=== PATIENT | female | born 1990 | race American Indian/Alaskan Native ===

== ENCOUNTER 2018-10-21 13:15 | Outpatient (CLI) | payer MEDICAID ==
[2018-10-21 18:22] LABS: BASOPHILS # (AUTO) 0.1 10^3/uL (0.0-0.1); BASOPHILS % (AUTO) 0.7 %; EOSINOPHILS # (AUTO) 0.3 10^3/uL (0.0-0.7); HGB - HEMOGLOBIN 13.5 g/dL (12.0-16.0); LYMPHOCYTES # (AUTO) 2.4 10^3/uL (1.5-3.5); LYMPHOCYTES % (AUTO) 28.7 %; MEAN CORPUSCULAR HEMOGLOBIN 28.6 pg (27.0-31.0); MEAN CORPUSCULAR HGB CONC 32.3 g/dL (32.0-36.0); MEAN CORPUSCULAR VOLUME 88.6 fL (81.0-99.0); MONOCYTES # (AUTO) 0.3 10^3/uL (0.0-1.0); MONOCYTES % (AUTO) 3.9 %; NEUTROPHILS # (AUTO) 5.2 10^3/uL (1.5-6.6); NEUTROPHILS % (AUTO) 62.7 %; PLT - PLATELET COUNT 276 10^3/uL (130-450); RED BLOOD COUNT 4.73 10^6/uL (4.20-5.40); RED CELL DISTRIBUTION WIDTH 13.9 % (12.0-15.0); WHITE BLOOD COUNT 8.3 x10^3/uL (4.8-10.8)
[2018-10-21 18:28] LABS: CALCIUM 9.5 mg/dL (8.5-10.3); CREATININE 0.8 mg/dL (0.4-1.0)
== END 2018-10-21 23:59 | disposition home or self-care (01) ==
LOC: LAB.N 13:15
PROVIDERS: ATTEND Physician Assistant Medical
DX: Z00.00 Encounter for general adult medical examination without abnormal findings (principal); E66.01 Morbid (severe) obesity due to excess calories; J30.2 Other seasonal allergic rhinitis; F17.210 Nicotine dependence, cigarettes, uncomplicated; J45.20 Mild intermittent asthma, uncomplicated
CPT/HCPCS: 36415; 80048; 84443; 85025

== ENCOUNTER 2019-03-04 08:00 | Outpatient (CLI) | payer MEDICAID ==
[2019-03-04 18:53] LABS: BASOPHILS # (AUTO) 0.1 10^3/uL (0.0-0.1); BASOPHILS % (AUTO) 0.9 %; EOSINOPHILS # (AUTO) 0.4 10^3/uL (0.0-0.7); HGB - HEMOGLOBIN 13.9 g/dL (12.0-16.0); LYMPHOCYTES # (AUTO) 2.5 10^3/uL (1.5-3.5); LYMPHOCYTES % (AUTO) 30.8 %; MEAN CORPUSCULAR HEMOGLOBIN 29.4 pg (27.0-31.0); MEAN CORPUSCULAR HGB CONC 31.5 g/dL (32.0-36.0); MEAN CORPUSCULAR VOLUME 93.4 fL (81.0-99.0); MEAN PLATELET VOLUME 11.2 fL (7.9-10.8); MONOCYTES # (AUTO) 0.4 10^3/uL (0.0-1.0); MONOCYTES % (AUTO) 5.4 %; NEUTROPHILS # (AUTO) 4.7 10^3/uL (1.5-6.6); NEUTROPHILS % (AUTO) 57.7 %; PLT - PLATELET COUNT 307 10^3/uL (130-450); RED BLOOD COUNT 4.72 10^6/uL (4.20-5.40); RED CELL DISTRIBUTION WIDTH 13.6 % (12.0-15.0); WHITE BLOOD COUNT 8.2 x10^3/uL (4.8-10.8)
[2019-03-04 19:07] LABS: CALCIUM 9.5 mg/dL (8.5-10.3)
== END 2019-03-04 23:59 | disposition home or self-care (01) ==
LOC: LAB.N 08:00
PROVIDERS: ATTEND Physician Assistant Medical
DX: R11.2 Nausea with vomiting, unspecified (principal)
CPT/HCPCS: 36415; 80048; 85025

== ENCOUNTER 2019-10-21 17:20 | Outpatient (CLI) | payer MEDICAID | END 2019-10-21 17:21 | disposition home or self-care (01) | LOC: COV 17:20 | PROVIDERS: ATTEND Family Medicine | DX: R50.9 Fever, unspecified (principal); R05 Cough; R53.83 Other fatigue | CPT/HCPCS: 81599 ==

== ENCOUNTER 2020-01-11 14:50 | Outpatient (CLI) | payer MEDICAID ==
[2020-01-11 18:40] LABS: HGB - HEMOGLOBIN 14.6 g/dL (12.0-16.0); MEAN CORPUSCULAR HEMOGLOBIN 30.3 pg (27.0-31.0); MEAN CORPUSCULAR HGB CONC 32.3 g/dL (32.0-36.0); MEAN CORPUSCULAR VOLUME 93.8 fL (81.0-99.0); MEAN PLATELET VOLUME 11.3 fL (7.9-10.8); RED BLOOD COUNT 4.82 10^6/uL (4.20-5.40); WHITE BLOOD COUNT 11.4 x10^3/uL (4.8-10.8)
[2020-01-11 19:10] LABS: CRP - C-REACTIVE PROTEIN 1.7 mg/dL (0-1.0)
[2020-01-11 19:15] LABS: RHEUMATOID FACTOR NEGATIVE (Negative); URIC ACID 5.3 mg/dL (2.6-7.2)
[2020-01-13 14:13] LABS: ANA SCREEN NEGATIVE (NEGATIVE)
[2020-01-13 15:14] LABS: DNA (DS) ANTIBODY 3 IU/mL
[2020-01-13 18:43] LABS: CYCLIC CITRULL PEPTIDE CCP IGG <16 UNITS
== END 2020-01-11 23:59 | disposition home or self-care (01) ==
LOC: LAB.WCP 14:50
PROVIDERS: ATTEND Family Medicine
DX: R22.1 Localized swelling, mass and lump, neck (principal); M25.531 Pain in right wrist
CPT/HCPCS: 36415; 84443; 84550; 85027; 85651; 86038; 86140; 86200; 86225; 86430

== ENCOUNTER 2020-01-22 14:55 | Outpatient (CLI) | payer MEDICAID ==
--- NOTE | 2020-01-22 18:31 | Ultrasound Report ---
PROCEDURE: Head or Neck Soft Tissue INDICATIONS: NECK MASS TECHNIQUE: Real time scanning was performed of the neck region of interest, with image documentation . COMPARISON: None. FINDINGS: An area of clinical concern is scattered within the left neck superiorly and laterally. At this site, there is an abnormal appearing lymph node with a thickened cortex and measures 2.5 x 0.7 x 1.3 centi meters. The right thyroid lobe measures 5.4 x 1.9 x 2 cm. The left thyroid lobe measures 4.9 x 1.5 x 1.7 cm. The thyroid isthmus measures 7 mm. No thyroid nodules are seen. IMPRESSION: An abnormal lymph node can be seen at the site of clinical concern. Please consider a dedicated neck CT with IV contrast for further evaluation. Normal-appearing thyroid. Reviewed by: Raul Fairchild MD on 01/22/2020 5:30 PM ARACELI Approved by: Raul Fairchild MD on 01/22/2020 5:30 PM ARACELI Station ID: [id number]
== END 2020-01-22 14:56 | disposition home or self-care (01) ==
LOC: DI 14:55
PROVIDERS: ATTEND Family Medicine
DX: R59.0 Localized enlarged lymph nodes (principal)
CPT/HCPCS: 76536

== ENCOUNTER 2020-02-03 08:00 | Outpatient (CLI) | payer MEDICAID ==
[2020-02-03 12:10] LABS: ALBUMIN 4.3 g/dL (3.2-5.5); ALBUMIN/GLOBULIN RATIO 1.3 (1.0-2.2); BILIRUBIN,TOTAL 0.5 mg/dL (0.2-1.0); CALCIUM 9.4 mg/dL (8.5-10.3); CREATININE 0.8 mg/dL (0.4-1.0); TOTAL PROTEIN 7.6 g/dL (6.7-8.2)
== END 2020-02-03 23:59 | disposition home or self-care (01) ==
LOC: LAB.WCP 08:00
PROVIDERS: ATTEND Family Medicine
DX: R22.1 Localized swelling, mass and lump, neck (principal)
CPT/HCPCS: 36415; 80053

== ENCOUNTER 2020-02-10 09:04 | Outpatient (CLI) | payer MEDICAID ==
[2020-02-10] MEDS ORDERED: IOVERSOL 320 100 ML VIAL IVP ONE ×2 (09:19→09:47)
--- NOTE | 2020-02-10 14:45 | CT Report ---
PROCEDURE: SOFT TISSUE NECK W INDICATIONS: NECK MASS CONTRAST: IV CONTRAST: Optiray 320 ml: 100 PO CONTRAST: *NO PO CONTRAST TECHNIQUE: After the administration of intravenous contrast, 3.0 mm axial sections acquired from the sella to e aortic arch. Additional oblique axial 3.0 mm sections acquired through the pharynx. 3 mm thick co jayden reformats were generated. For radiation dose reduction, the following was used: automated exp osure control, adjustment of mA and/or kV according to patient size. COMPARISON: 01/22/2020 Ultrasound FINDINGS: Image quality: Excellent. Lymph nodes: There is an enlarged left jugulodigastric lymph node measuring approximately 1.1 centime ters short axis diameter and 2.2 cm long axis diameter (series 5 image 51 and series 3 image 55). The re is a normal small fatty hilum identified, with an overall appearance is very similar to that of e 01/22/2020 ultrasound. An additional prominent but not threshold enlarged jugulodigastric station ly mph node on the left measuring up to 6 mm short axis diameter (series 5 image 58 and series 3 image 5 0). Vessels: Visualized vasculature appears patent. Neck spaces: The oropharynx, nasopharynx, and pharynx demonstrate no mucosal lesions. The vocal cor ds, false vocal cords, pyriform sinuses, epiglottis, vallecula, and tongue base all appear normal. E xtramucosal spaces appear unremarkable. Glands: The parotid and submandibular glands appear normal. The thyroid is normal in size. Miscellaneous: Visualized brain and orbits appear normal. Lung apices appear clear. Superficial so ft tissues appear normal. Bones: No suspicious bony lesions. Visualized sinuses and mastoids appear unremarkable. IMPRESSION: Unchanged size of left jugular digastric lymph node. There is threshold cortical thickening of this l ymph node up to 8 mm however there is preservation of a small fatty hilum. Overall, this is favored t o be benign however follow-up to clinical versus imaging resolution is recommended. A follow-up ultra sound study is recommended in 6 weeks. If at that time the lymph node has not resolved or decreased i n size, fine-needle laceration would be recommended. Reviewed by: Mina Hussein MD on 02/10/2020 2:44 PM PDT Approved by: Mina Hussein MD on 02/10/2020 2:44 PM PDT Station ID: [id number]
== END 2020-02-10 09:05 | disposition home or self-care (01) ==
LOC: DI 09:04
PROVIDERS: ATTEND Family Medicine
DX: R59.0 Localized enlarged lymph nodes (principal)
CPT/HCPCS: 70491; Q9967

== ENCOUNTER 2020-04-23 12:50 | Outpatient (CLI) | payer MEDICAID ==
--- NOTE | 2020-04-23 15:44 | Ultrasound Report ---
PROCEDURE: Head or Neck Soft Tissue INDICATIONS: NECK MASS TECHNIQUE: Real time scanning was performed of the neck region of interest, with image documentation . COMPARISON: 01/22/2020. Correlation is also made with the CT study, 02/10/2020. FINDINGS: Within the left superior lateral neck, there is a stable abnormal lymph node seen that joy sures 2.6 x 0.9 x 1.3 cm, which previously measured 2.5 x 0.7 x 1.3 cm. IMPRESSION: Persistently enlarged neck lymph node seen on the left, without significant change compared to 020. If clinically appropriate, an ultrasound-guided percutaneous biopsy could be considered for further e valuation. Reviewed by: Raul Fairchild MD on 04/23/2020 2:43 PM AKST Approved by: Raul Fairchild MD on 04/23/2020 2:43 PM CHARLIE Station ID: [id number]
== END 2020-04-23 12:51 | disposition home or self-care (01) ==
LOC: DI 12:50
PROVIDERS: ATTEND Nurse Practitioner Family
DX: R59.0 Localized enlarged lymph nodes (principal)
CPT/HCPCS: 76536

== ENCOUNTER 2020-06-29 18:11 | Outpatient (CLI) | payer MEDICAID ==
--- NOTE | 2020-06-29 17:31 | XRAY Report ---
PROCEDURE: Knee 4 View LT INDICATIONS: L KNEE JOINT PX TECHNIQUE: 4 views of the left knee(s) were acquired. COMPARISON: None. FINDINGS: Bones: Postsurgical changes are noted in left knee from prior ACL repair. Alignment of left knee is anatomic. No fractures or dislocations. No gross hardware loosening or failure. No suspicious bony l esions. Soft tissues: No joint effusion. No suspicious soft tissue calcifications. IMPRESSION: Anatomic left knee alignment. Prior ACL repair. No gross hardware complication. No fract ure or dislocation. No joint effusion. Reviewed by: Trav Ortega MD on 06/29/2020 5:30 PM PST Approved by: Trav Ortega MD on 06/29/2020 5:30 PM PST Station ID: [id number]
== END 2020-06-29 23:59 | disposition home or self-care (01) ==
LOC: DI.N 18:11
PROVIDERS: ATTEND Physician Assistant
DX: M25.562 Pain in left knee (principal)

== ENCOUNTER 2020-07-13 13:39 | Outpatient (CLI) | payer MEDICAID ==
[2020-07-13] MEDS ORDERED: BUFFERED LIDOCAINE 10 ML SYRINGE ONE (13:50)
[2020-07-13] MEDS ORDERED: BUFFERED LIDOCAINE 10 ML SYRINGE IU ONE (16:05)
--- NOTE | 2020-07-13 16:33 | Ultrasound Report ---
PROCEDURE: Needle Bx Lymph Node INDICATIONS: NECK MASS TECHNIQUE: The indications, alternatives, benefits, risks, and complications of the procedure were e xplained to the patient. Written informed consent was obtained and placed in the chart. Real-time sonography was utilized to choose the site for percutaneous lymph node sampling. The skin was prepped and draped in the usual sterile fashion. 1% lidocaine was infiltrated down to the site o f interest. A coaxial needle was then advanced into the site of interest under direct sonographic vi sualization. A biopsy apparatus was then utilized, and core biopsies were obtained. The needle was then withdrawn; a bandage was applied to the biopsy site. COMPARISON: US dated 04/23/[address] neck dated 02/10/2020. FINDINGS: Biopsy site(s): Left neck Needle: scribleno biopsy needle set. Number of passes: 4 (2 samples were put in formalin, 2 samples were placed in RPMI solution.) Medications: 1% lidocaine for local anaesthesia. Complications: None. IMPRESSION: Successful ultrasound-guided left neck lymph node biopsy, with pathology results pending . Reviewed by: Kennedy Murillo MD on 07/13/2020 4:32 PM PST Approved by: Kennedy Murillo MD on 07/13/2020 4:32 PM PST Station ID: [id number]
== END 2020-07-13 13:40 | disposition home or self-care (01) ==
LOC: DI 13:39
PROVIDERS: ATTEND Nurse Practitioner Family
DX: R59.0 Localized enlarged lymph nodes (principal)
CPT/HCPCS: 38505

== ENCOUNTER 2021-07-16 08:00 | Outpatient (CLI) | payer MEDICAID | END 2021-07-16 23:59 | LOC: LAB.N 08:00 | PROVIDERS: ATTEND Physician Assistant | DX: R07.0 Pain in throat (principal); Z20.822 Contact with and (suspected) exposure to COVID-19 | CPT/HCPCS: 87070 ==